=== PATIENT | male | born 1980 | race Hispanic/Latino ===

== ENCOUNTER 2023-07-01 16:50 | Emergency (ER) | payer SELFPAY ==
[2023-07-01] VITALS (9 sets, daily range): BP systolic 139–162; BP diastolic 71–95; PULSE 79–88; RESP 16–23; TEMP 36.9; O2SAT 97–100; BMI 27.4
--- NOTE | 2023-07-01 17:09 | DI.RAD.S_ITS ---
PROCEDURE: XR CHEST 1V INDICATIONS: chest pain TECHNIQUE: One view of the chest was acquired. COMPARISON: None. FINDINGS: Surgical changes and devices: None. Lungs and pleura: On this semiupright portable chest examination, no large pneumothorax or large pleural effusions are seen. No focal infiltrates are seen. Mediastinum: Mediastinal contours appear normal. Heart size is normal. Bones and chest wall: No suspicious bony lesions. Overlying soft tissues appear unremarkable. IMPRESSION: Limited portable chest examination, without a significant cardiopulmonary abnormality identified. Dictated by: Brad Diaz M.D. on 07/01/2023 at 17:06 Approved by: Brad Diaz M.D. on 07/01/2023 at 17:06
[2023-07-01 18:07] LABS: Mean Corpuscular HGB Conc 36.1 % (30-36); Mean Corpuscular Hemoglobin 32.9 PG (26-34); Mean Corpuscular Volume 91.2 fL (80-100); Platelet Count 241 X10^3/uL (150-400); Red Blood Cell Count 5.15 X10^6/uL (4.5-5.9); Red Cell Distribution Width 13.3 % (11.6-14.8); White Blood Cell Count 8.3 X10^3/uL (4.5-11.0)
[2023-07-01 18:08] LABS: Add Manual Diff / Slide Review YES
[2023-07-01 18:24] LABS: Alanine Aminotransferase 31 IU/L (<50); Albumin 4.5 g/dL (3.5-5.0); Albumin Globulin Ratio 1.1 (1.0-2.8); Alkaline Phosphatase 105 U/L (38-126); Aspartate Aminotransferase 41 IU/L (17-59); BUN Creatinine Ratio 24.2 (6-22); Bilirubin Total 1.2 mg/dL (0.2-1.3); Blood Urea Nitrogen 16 mg/dL (9-20); Calcium 9.4 mg/dL (8.4-10.2); Carbon Dioxide 22 mmol/L (22-32); Chloride 105 mmol/L (98-107); Creatine Kinase 90 U/L (55-170); Estimated Glomerular Filt Rate > 60 mL/min (>60); Glucose 119 mg/dL (70-100); HEMOLYSIS 50 (0-50); Lipase 90 U/L (23-300); Potassium 3.8 mmol/L (3.4-5.1); Sodium 139 mmol/L (137-145); Total Protein 8.5 g/dL (6.3-8.2)
[2023-07-01] MEDS: diphenhydrAMINE 50 MG/ML VIAL IV (18:27)
[2023-07-01] MEDS: KETOROLAC 30 MG/ML VIAL 15 MG IV (18:27)
[2023-07-01] MEDS: DEXAMETHASONE 10 MG/ML VIAL IV (18:27)
[2023-07-01] MEDS: SODIUM CHLORIDE 0.9% 1,000 ML 1000 ML IV (18:27)
[2023-07-01] MEDS: METOCLOPRAMIDE 10 MG/2 ML INJ IV (18:27)
--- NOTE | 2023-07-01 18:28 | ED.HA ---
HPI - Headache General Chief Complaint: Dizziness Stated Complaint: Headaches and high BP one week Time Seen by Provider: 07/01/23 17:49 Mode of arrival: Ambulatory History of Present Illness HPI Narrative: 43-year-old male presents with diffuse, nonradiating headache for 1-2 weeks. Pain is described as a throbbing ache that is partially relieved with Tylenol as patient has been using both Tylenol and aspirin occasionally for symptom relief. Patient denies head injury. Patient reports a history hypertension. Patient reports being in his usual state of health prior to symptom onset denies history of recurrent migraine headaches. No other complaints or associated symptoms noted. Patient denies recent illness, sick contacts or travel. Patient arrives via private vehicle. Patient is ambulatory awake, alert, oriented x3, in no apparent distress and maintaining his own airway. Related Data Previous Rx's Medication Instructions Recorded lisinopril 10 mg tablet 10 mg PO DAILY #30 tabs 07/04/23 lisinopril 20 mg tablet 20 mg PO DAILY #30 tabs 08/01/23 Allergies Allergy/AdvReac Type Severity Reaction Status Date / Time No Known Drug Allergies Allergy Verified 08/01/23 16:27 Review of Systems Review of Systems Narrative: See HPI for pertinent positives, otherwise review of systems negative Patient History Medical History (Updated 08/14/23 @ 03:50 by Pop Ballesteros MD) History of corrected cleft lip and palate Family history of colon cancer Impaired fasting blood sugar High cholesterol Surgical History (Updated 07/04/23 @ 16:09 by Yoon Machado MD) History of repair of congenital cleft palate History of inguinal hernia repair Social History Smoking Status: Former smoker Smoking Status: Former smoker Substance Use Type: does not use Exam Narrative Exam Narrative: General:? Awake, alert, lying comfortably in bed during both exam and interview and in no apparent distress HEENT:? Normocephalic, atraumatic, pupils equal and reactive to light, TMs clear bilateral, trachea midline, neck is supple, normal range of motion Chest:? Normal to inspection, no crepitus, no tenderness Cardiovascular:? 2+ radial bilaterally, regular rhythm/rate. Pulmonary:? Regular respirations, no respiratory distress, lungs clear to auscultation bilateral Abdomen:? Soft, nontender, nondistended, no guarding or rebound tenderness, no hernia Back: ?No midline spinal tenderness, normal range of motion, no step-off deformities :? Exam deferred Skin:? Warm, dry, intact, no rashes Extremities:? No deformities of bilateral upper/lower extremities, nontender Neuro:? No focal neurological deficits, moving all 4 extremities equally, normal gait, normal speech Psych:? Normal mood, normal affect normal attention Initial Vital Signs Initial Vital Signs: Vital Signs Pulse Rate 85 07/01/23 17:02 Blood Pressure 162/95 H 07/01/23 17:02 Pulse Oximetry 99 07/01/23 17:02 Course Orders Ordered: Discontinued Medications Dexamethasone (Dexamethasone 10 Mg/Ml Vial) 10 mg IV NOW ONE Stop: 07/01/23 18:13 Last Admin: 07/01/23 18:27 Dose: 10 mg Documented By: NORMAN Diphenhydramine HCl (Diphenhydramine 50 Mg/Ml Vial) 50 mg IV NOW ONE Stop: 07/01/23 18:13 Last Admin: 07/01/23 18:27 Dose: 50 mg Documented By: NORMAN Sodium Chloride (Normal Saline 0.9%) 1,000 mls @ 1,000 mls/hr IV BOLUS ONE Stop: 07/01/23 19:11 Last Infusion: 07/01/23 19:22 Dose: Infused Documented By: Admin: 07/01/23 18:27 Dose: 1,000 mls/hr Documented By: NORMAN Ketorolac Tromethamine (Ketorolac 30 Mg/Ml Vial) 15 mg IV NOW ONE Stop: 07/01/23 18:13 Last Admin: 07/01/23 18:27 Dose: 15 mg Documented By: NORMAN Metoclopramide HCl (Metoclopramide 10 Mg/2 Ml Inj) 10 mg IV NOW ONE Stop: 07/01/23 18:13 Last Admin: 07/01/23 18:27 Dose: 10 mg Documented By: NORMAN Vital Signs Vital signs: Vital Signs - 8 hr 07/01/23 17:02 07/01/23 17:02 07/01/23 17:03 Temperature 98.4 F Pulse Rate 85 84 Respiratory Rate 16 Blood Pressure 162/95 H 162/95 H Pulse Oximetry 99 99 Oxygen Delivery Method Room Air 07/01/23 17:30 07/01/23 18:00 07/01/23 18:04 Temperature Pulse Rate 83 80 Respiratory Rate Blood Pressure 157/83 H Pulse Oximetry 97 97 Oxygen Delivery Method 07/01/23 18:04 Temperature Pulse Rate 87 Respiratory Rate Blood Pressure Pulse Oximetry 97 Oxygen Delivery Method MDM - Headache Differential Diagnosis Differential diagnosis: Likely migraine, tension headache, subarachnoid hemorrhage, headache, meningitis and sinusitis Lab Data 07/01/23 04:44 07/01/23 04:44 Labs: Lab Results 07/01/23 Range/Units 04:44 WBC 8.3 (4.5-11.0) X10^3/uL RBC 5.15 (4.5-5.9) X10^6/uL Hgb 17.0 (13.5-17.5) g/dL Hct 47.0 (41-53) % MCV 91.2 (80-100) fL MCH 32.9 (26-34) PG MCHC 36.1 H (30-36) % RDW 13.3 (11.6-14.8) % Plt Count 241 (150-400) X10^3/uL Neut % (Auto) Not Reportable Lymph % (Auto) Not Reportable [place] % (Auto) Not Reportable Eos % (Auto) Not Reportable Baso % (Auto) Not Reportable Lymph # (Auto) Not Reportable [place] # (Auto) Not Reportable Baso # (Auto) Not Reportable Total Counted 100 Seg Neutrophils % 63.0 (38-70) % Band Neutrophils % 1.0 L (3-7) % Lymphocytes % (Manual) 30.0 (25-45) % Atypical Lymphs % 1.0 H ( - 0) % Monocytes % (Manual) 5.0 (2-11) % Neutrophils # (Manual) 5312 (3766-4560) /uL Plt Morphology Comment RBC Morphology See below Rouleaux 1+ H Sodium 139 (137-145) mmol/L Potassium 3.8 (3.4-5.1) mmol/L Chloride 105 (98-107) mmol/L Carbon Dioxide 22 (22-32) mmol/L BUN 16 (9-20) mg/dL Creatinine 0.66 (0.66-1.25) mg/dL Estimated GFR > 60 (>60) mL/min BUN/Creatinine Ratio 24.2 H (6-22) Glucose 119 H (70-100) mg/dL Calcium 9.4 (8.4-10.2) mg/dL Total Bilirubin 1.2 (0.2-1.3) mg/dL AST 41 (17-59) IU/L ALT 31 (<50) IU/L Alkaline Phosphatase 105 (38-126) U/L Total Creatine Kinase 90 (55-170) U/L Troponin I 0.017 (0.01-0.034) ng/mL Total Protein 8.5 H (6.3-8.2) g/dL Albumin 4.5 (3.5-5.0) g/dL Globulin 4.0 (1.7-4.1) g/dL Albumin/Globulin Ratio 1.1 (1.0-2.8) Lipase 90 (23-300) U/L Urine Dip Bedside Urine Glucose Negative Bedside Urine Bilirubin - Negative Bedside Urine Ketone - Negative Urine Specific [place] 1.005 Bedside Urine Occult Blood - Negative Bedside Urine pH 6.0 Bedside Urine Protein - Negative Bedside Urine Urobilinogen - Negative Bedside Urine Nitrite - Negative Bedside Urine Leukocytes - Negative Esterase Imaging Data Chest x-ray: My Impression: No acute disease, no pneumonia or pneumothorax. MDM Narrative Medical decision making narrative: Patient presents with headache. Current vital signs are within normal limits/nonactionable. Patient reports having headache for 1-2 weeks. Patient denies head injury. Current vital signs are within normal limits/nonactionable IV fluids, Reglan, Benadryl, Decadron Toradol given with improvement in symptoms. Diagnostic laboratory testing within normal limits/nonactionable not suggestive of significant anemia, electrolyte abnormalities or infectious/inflammatory etiology. UA urinalysis not suggestive of UTI. Patient's clinical history exam is not suggestive of meningitis or subarachnoid hemorrhage. No acute imaging is warranted at this time. Patient reports feeling much better requests discharge home. Return precautions given. PCP follow-up recommended 1 week. Patient able to ambulate well without assistance at time of discharge. Discharge Plan Departure Patient Disposition: Home Clinical Impression: Headache Qualifiers: Headache type: unspecified Headache chronicity pattern: acute headache Intractability: not intractable Qualified Code(s): R51.9 - Headache, unspecified Hypertension Qualifiers: Hypertension type: unspecified Qualified Code(s): I10 - Essential (primary) hypertension Instructions: High Blood Pressure, DI for Headache Prescriptions: No Action lisinopril 10 mg tablet 10 mg PO DAILY Qty: 30 1RF lisinopril 20 mg tablet 20 mg PO DAILY Qty: 30 2RF Referrals: Miscellaneous,Doctor, [Primary Care Provider] - Tiffany Curtis MD [Physician] - As soon as possible Stand Alone Forms: Patient Portal/API
[2023-07-01 18:36] LABS: Troponin I 0.017 ng/mL (0.01-0.034)
[2023-07-01 18:39] LABS: Neutrophils Absolute Manual 5312 /uL (3000-5900); Total Cells Counted 100
[2023-07-01 18:40] LABS: Rouleaux 1+
== END 2023-07-01 19:42 | disposition home or self-care (01) ==
PROVIDERS: Emergency Medicine; Emergency Provider Emergency Medicine
DX: R51.9 Headache, unspecified (principal); I10 Essential (primary) hypertension; Z79.899 Other long term (current) drug therapy
CPT/HCPCS: 36415; 71045; 80053; 81003; 82550; 83690; 84484; 85007; 85025; 93005; 96361; 96374; 96375; 99284; J1100; J1200; J1885; J2765

== ENCOUNTER → 2023-08-05 09:47 | Outpatient (CLI) | payer SELFPAY ==
[2023-08-05 10:47] LABS: BUN Creatinine Ratio 21.8 (6-22); Blood Urea Nitrogen 17 mg/dL (9-20); Calcium 9.1 mg/dL (8.4-10.2); Carbon Dioxide 24 mmol/L (22-32); Chloride 107 mmol/L (98-107); Cholesterol 201 mg/dL (140-199); Estimated Glomerular Filt Rate > 60 mL/min (>60); Glucose 104 mg/dL (70-100); HDL Cholesterol 39 mg/dL (40-60); HEMOLYSIS < 15 (0-50); LDL Cholesterol Calculated 129 mg/dL (<100); Potassium 4.4 mmol/L (3.4-5.1); Sodium 140 mmol/L (137-145); Triglycerides 165 mg/dL (35-150)
[2023-08-06 09:40] LABS: x Labcorp Estim. Avg Glu (eAG) 108 mg/dL (.); x Labcorp Hemoglobin A1c 5.4 % (4.8-5.6)
== END ==
LOC: LAB 09:54
PROVIDERS: PCP Family Medicine; Referring Provider Family Medicine; Visit Provider Family Medicine
DX: R73.01 Impaired fasting glucose (principal); E78.00 Pure hypercholesterolemia, unspecified; I10 Essential (primary) hypertension
CPT/HCPCS: 36415; 80048; 80061; 83036